=== PATIENT | female | born 1965 | race Caucasian/White ===

== ENCOUNTER → 2017-10-31 | Outpatient (CLI) | payer BC ==
[~2017-10-31] MED LIST: NAPR1TAB9 PO; USTE45IN
--- NOTE | 2017-10-31 16:43 | DIAGNOSTIC IMAGING REPORT ---
CERVICAL WITHOUT CONTRAST HISTORY: Pain. Neuropathy. NECK AND SHOULDER PAIN TECHNIQUE: Multiplanar multisequence MRI of the cervical spine was performed without the use of contrast. COMPARISON STUDY: 07/14/2015 FINDINGS: Stable findings of an anterior fusion at C6-C7. Mild reactive bone marrow edema of C4 and C5 as compared to the prior exam. This suggests bone contusion and a mild bone marrow edematous change. Signal characteristics the cervical cord are unremarkable based on the sagittal images. C2-C3: No significant central canal or neural foraminal narrowing. C3-C4: No significant central canal or neural foraminal narrowing. C4-C5: Broad-based bulging disc in contact with the cervical cord. No deformity of the cord. Mild narrowing of the neuroforamina bilaterally. C5-C6: Broad-based bulging disc showing no contact with the cervical cord. Moderate narrowing of the right and to lesser extent left neural foramina. C6-C7: Operative changes consistent with an anterior fusion. C7-T1: No significant central canal or neural foraminal narrowing. IMPRESSION: 1. Interval development of mild bone marrow edema of C4 and C5 immediately superior to the previously placed anterior fusion at C6-C7. 2. This potentially indicates reactive bone marrow edema versus degenerative change. 3. Pre-existing bulging disc C4-C5 and C5-C6 unchanged from the prior study. 4. Mild narrowing of the neuroforamina bilaterally at both levels. 5. Anterior fusion C6-C7 appearing to be aligned anatomically. This is unchanged from the prior study. The above report was generated using voice recognition software. It may contain grammatical, syntax or spelling errors. Electronically signed by: Tru Duckworth M.D. 10/31/2017 4:41 PM Dictated Date/Time: 10/31/2017 4:36 PM
== END | disposition home or self-care (01) ==
LOC: C.MRIBC 15:43
PROVIDERS: ATTEND Physician Assistant Medical
DX: M50.121 Cervical disc disorder at C4-C5 level with radiculopathy (principal); M50.122 Cervical disc disorder at C5-C6 level with radiculopathy; M89.8X8 Other specified disorders of bone, other site; Z98.1 Arthrodesis status